=== PATIENT | male | born 1995 | race Caucasian/White ===

== ENCOUNTER 2019-11-20 17:13 | Emergency (ER) | payer OTHER ==
--- NOTE | 2019-11-20 18:43 | RAD REPORT ---
EXAM DESCRIPTION: RAD - Chest Single View - 11/20/2019 6:05 pm CLINICAL HISTORY: Chest pain COMPARISON: None. TECHNIQUE: AP portable chest image was obtained 1801 hour . FINDINGS: The Heart and vasculature are normal. No measurable pleural effusion and no pneumothorax. No acute bony abnormality seen. No acute aortic findings suspected. IMPRESSION: No acute cardiopulmonary process.
--- NOTE | 2019-11-20 18:48 | ER ---
Nurse's Notes [facility] Name: Saul Bose Age: 24 yrs Sex: Male : 1995 Arrival Date: 11/20/2019 Time: 17:20 Bed 27 Private MD: Diagnosis: Malaise and fatigue;Chest pain, unspecified Presentation: 11/20 17:48 Presenting complaint: Patient states: Sharp stabbing chest "on and off for years", ph recent generalized weakness, fatigue, and insomnia. Transition of care: patient was not received from another setting of care. Onset of symptoms was November 20, 2019. Risk Assessment: Do you want to hurt yourself or someone else? Patient reports no desire to harm self or others. Initial Sepsis Screen: Does the patient meet any 2 criteria? No. Patient's initial sepsis screen is negative. Does the patient have a suspected source of infection? No. Patient's initial sepsis screen is negative. 17:48 Method Of Arrival: Ambulatory 17:48 Acuity: JCARLOS 4 ph 18:00 Care prior to arrival: None. ls4 Triage Assessment: 18:00 General: Appears in no apparent distress. comfortable. Pain: Denies pain. Neuro: No ls4 deficits noted. Cardiovascular: No deficits noted. Respiratory: No deficits noted. Historical: - Allergies: 17:50 PENICILLINS; ph 17:50 CEPHALOSPORINS; ph - Immunization history:: Adult Immunizations up to date. - Social history:: Smoking status: Patient/guardian denies using tobacco. - Ebola Screening: : No symptoms or risks identified at this time. Screenin:45 Abuse screen: Denies threats or abuse. Denies injuries from another. Nutritional ls4 screening: No deficits noted. Tuberculosis screening: No symptoms or risk factors identified. Fall Risk None identified. Assessment: 17:45 General: Appears in no apparent distress. Behavior is calm, cooperative. ls4 Cardiovascular: Reports chest pain, insomnia, fatigue, weakness. Denies diaphoresis, lightheadedness, nausea, palpitations, shortness of breath, syncope, vomiting, Chest pain. 18:56 Reassessment: Patient appears in no apparent distress at this time. Patient and/or ls4 family updated on plan of care and expected duration. Pain level reassessed. Patient is alert, oriented x 3, equal unlabored respirations, skin warm/dry/pink. Pain: Denies pain. Pain does not radiate. Pain began . Vital Signs: 17:49 BP 121 / 77; Pulse 97; Resp 18; Temp 98.0; Pulse Ox 100% on R/A; Weight 81.65 kg; Pain ph 2/10; 18:55 BP 122 / 70; Pulse 76; Resp 16; Temp 98.0; Pulse Ox 100% ; Pain 0/10; ls4 ED Course: 17:20 Patient arrived in ED. ag5 17:44 Barbara Burgos, RN is Primary Nurse. ls4 17:45 Scott Herrera [facility]-C [facility]. la1 17:45 Paul Riojas MD is Attending Physician. la1 17:45 Patient has correct armband on for positive identification. Bed in low position. Call ls4 light in reach. Side rails up X 1. teletypesetter monitor on. Pulse ox on. NIBP on. Verbal reassurance given. 17:45 No provider procedures requiring assistance completed. Patient maintains SpO2 ls4 saturation greater than 95% on room air. 17:49 Triage completed. ph 18:00 Arm band placed on. EKG done per protocol. Performed by ED Staff. Shown to ED physician.ls4 18:05 XRAY Chest (1 view) In Process Unspecified. EDMS 18:54 Throat Culture Sent. ls4 18:56 Patient did not have IV access during this emergency room visit. ls4 Administered Medications: No medications were administered Outcome: 18:47 Discharge ordered by MD. la1 18:56 Discharged to home ambulatory. ls4 18:56 Condition: good 18:56 Discharge instructions given to patient, Instructed on discharge instructions, follow up and referral plans. Demonstrated understanding of instructions, follow-up care. 19:02 Patient left the ED. ls4 Signatures: Dispatcher [employer] EDMS Scott Herrera FNP-C STOCK WORKER-Cla1 Teagan Steven RN RN ph Barbara Burgos RN RN ls4 Marleny Wright ag5
--- NOTE | 2019-11-20 18:48 | EDPHYS ---
Physician Documentation [facility] Name: Saul Bose Age: 24 yrs Sex: Male : 1995 Arrival Date: 11/20/2019 Time: 17:20 Bed 27 Private MD: ED Physician Paul Riojas HPI: 11/20 18:01 This 24 yrs old Male presents to ER via Ambulatory with complaints of General la1 Weakness, Doesn't Feel Right, Chest Pain. 18:01 Onset: The symptoms/episode began/occurred 4 year(s) ago. Associated signs and la1 symptoms: Pertinent negatives: abdominal pain, shortness of breath, vomiting. Modifying factors: The patient symptoms are alleviated by nothing, the patient symptoms are aggravated by nothing. The patient has experienced similar episodes in the past. Pt reports he has not been feeling well the last couple days, feeling malaise and fatigue. Also reports that the he has had intermittent sharp stabbing chest pain for the last four years and had an episode today, usually lasts a couple hours at a time.. Historical: - Allergies: 17:50 PENICILLINS; ph 17:50 CEPHALOSPORINS; ph - Immunization history:: Adult Immunizations up to date. - Social history:: Smoking status: Patient/guardian denies using tobacco. - Ebola Screening: : No symptoms or risks identified at this time. ROS: 18:03 Constitutional: Negative for fever, chills, and weight loss, Eyes: Negative for injury, la1 pain, redness, and discharge. 18:03 Neck: Negative for injury, pain, and swelling. 18:03 Abdomen/GI: Negative for abdominal pain, nausea, vomiting, diarrhea, and constipation, Back: Negative for injury and pain, MS/Extremity: Negative for injury and deformity, Neuro: Negative for headache, weakness, numbness, tingling, and seizure. 18:03 ENT: Positive for sore throat. 18:03 Cardiovascular: Positive for chest pain. 18:03 Respiratory: Positive for cough. Exam: 18:04 Constitutional: This is a well developed, well nourished patient who is awake, alert, la1 and in no acute distress. Head/Face: Normocephalic, atraumatic. 18:04 Neck: . No Meningismus. Chest/axilla: Normal chest wall appearance and motion. Nontender with no deformity. No lesions are appreciated. Cardiovascular: Regular rate and rhythm with a normal S1 and S2. No gallops, murmurs, or rubs. Normal PMI, no JVD. No pulse deficits. Respiratory: Lungs have equal breath sounds bilaterally, clear to auscultation. No rales, rhonchi or wheezes noted. No increased work of breathing, no retractions or nasal flaring. Abdomen/GI: Soft, non-tender, with normal bowel sounds. No guarding or rebound. No evidence of tenderness throughout. Back: No spinal tenderness. No costovertebral tenderness. Full range of motion. Skin: Warm, dry with normal turgor. Normal color with no rashes, no lesions, and no evidence of cellulitis. MS/ Extremity: Pulses equal, no cyanosis. Neurovascular intact. Full, normal range of motion. 18:04 ENT: External ear(s): are unremarkable, Ear canal(s): cerumen impaction, that is moderate, that is hard, bilaterally. Vital Signs: 17:49 BP 121 / 77; Pulse 97; Resp 18; Temp 98.0; Pulse Ox 100% on R/A; Weight 81.65 kg; Pain ph 2/10; 18:55 BP 122 / 70; Pulse 76; Resp 16; Temp 98.0; Pulse Ox 100% ; Pain 0/10; ls4 MDM: 17:45 Patient medically screened. la1 18:45 Data reviewed: vital signs, nurses notes, EKG, radiologic studies, and as a result, I la1 will discharge patient. Data interpreted: Pulse oximetry: on room air is 100 %. Interpretation: normal. Test interpretation: by ED physician or midlevel provider: ECG, plain radiologic studies. Counseling: I had a detailed discussion with the patient and/or guardian regarding: the historical points, exam findings, and any diagnostic results supporting the discharge/admit diagnosis, lab results, radiology results, the need for outpatient follow up, a family practitioner. Special discussion: I discussed with the patient/guardian that the patient's current presentation does not indicate dosing of antibiotics. They should follow-up with their primary care provider and return if the symptoms persist or progress. 11/20 17:52 Order name: XRAY Chest (1 view); Complete Time: 18:48 ls4 11/20 17:52 Order name: EKG; Complete Time: 17:53 [facility] 11/20 17:52 Order name: Cardiac monitoring; Complete Time: 18:16 [facility] 11/20 17:52 Order name: EKG - Nurse/Tech; Complete Time: 18:16 [facility] 11/20 17:57 Order name: Strep; Complete Time: 18:48 [facility] 11/20 17:57 Order name: Flu; Complete Time: 18:48 [facility] 11/20 18:25 Order name: Throat Culture [facility] 11/20 17:52 Order name: Labs collected and sent; Complete Time: 17:56 ls4 Administered Medications: No medications were administered Disposition: 19:04 Co-signature as Attending Physician, Paul Riojas MD. rn Disposition: 11/20/19 18:47 Discharged to Home. Impression: Malaise and fatigue, Chest pain, unspecified. - Condition is Stable. - Discharge Instructions: Nonspecific Chest Pain, Upper Respiratory Infection, Adult, Fatigue. - Medication Reconciliation Form, Thank You Letter form. - Work release form (11/20/19 19:04). mg2 - Follow up: Private Physician; When: 2 - 3 days; Reason: Recheck today's complaints, Re-evaluation by your physician. - Problem is new. - Symptoms have improved. Signatures: Dispatcher [employer] EDPaul Quiles MD MD rn Attema, Lee, IDA-Lori DAVEP-Cla1 Teagan Steven RN RN Barbara Fink RN RN ls4 Jethro Hitchcock RN mg2 Corrections: (The following items were deleted from the chart) 17:56 17:52 Oxygen Per Protocol ordered. [facility] 17:56 17:52 O2 Sat Monitoring ordered. [facility] la1 17:57 17:52 IV Saline Lock ordered. [facility] 17:58 17:53 CBC with Automated Diff ordered. [facility] EDMS 18:02 17:53 Basic Metabolic Panel ordered. [facility] EDMS 18:02 17:53 HEPATIC FUNCTION+C.LAB.BRZ ordered. [facility] EDMS 18:02 17:53 MAGNESIUM+C.LAB.BRZ ordered. [facility] EDMS 18:02 17:53 TROPONIN (EMERG DEPT USE ONLY)+C.LAB.BRZ ordered. [facility] EDMS 19:02 18:47 11/20/2019 18:47 Discharged to Home. Impression: Malaise and fatigue; Chest pain, ls4 unspecified. Condition is Stable. Forms are Medication Reconciliation Form, Thank You Letter, Antibiotic Education, Prescription Opioid Use. Follow up: Private Physician; When: 2 - 3 days; Reason: Recheck today's complaints, Re-evaluation by your physician. Problem is new. Symptoms have improved. la1
[2019-11-20 19:40] VITALS: TEMP 98; O2SAT 100
[2019-11-20 19:42] VITALS: BP 122/70
--- NOTE | 2019-11-22 06:39 | EKG ---
Test Date: 2019-11-20 Test Time: 18:10:54 [employer] Database Manager: SANTANA MEASUREMENT RESULTS: Intervals: Rate: 80 TX: 124 QRSD: 78 QT: 344 QTc: 396 [place]: P: 1 TX: 124 QRS: 36 T: 47 INTERPRETIVE STATEMENTS: Normal sinus rhythm Normal ECG No previous ECG available for comparison Electronically Signed On 11-22-19 06:36:18 DELIVER DRIVER by Ba Girard
== END 2019-11-20 19:02 | disposition home or self-care (01) ==
LOC: ER 17:13
DX: R07.9 Chest pain, unspecified (principal); R53.81 Other malaise; R53.83 Other fatigue; Z88.0 Allergy status to penicillin; Z88.8 Allergy status to other drugs, medicaments and biological substances
CPT/HCPCS: 71045; 87070; 87081; 87804; 93005; 99285